=== PATIENT | female | born 1940 | race Two or more races ===

== ENCOUNTER 2017-05-16 11:03 | Outpatient (CLI) | payer OTHER ==
[~2017-05-16 11:03] MED LIST: DOLOGESIC CAPLE1 TAB; NEURONTIN300 MG; NORVASC5 MG PO; NORVASE; PREVACID15 MG PO; TENORMIN50 MG PO; ULTRAM50 MG
== END 2017-05-16 11:05 | disposition home or self-care (01) ==
LOC: RAD 11:03
DX: Z98.1 Arthrodesis status (principal); M96.0 Pseudarthrosis after fusion or arthrodesis

== ENCOUNTER 2017-08-20 08:23 | Emergency (ER) | payer OTHER ==
[~2017-08-20] VITALS: Ht 165.1 cm; Wt 92.1 kg
== END 2017-08-20 18:21 | disposition home or self-care (01) ==
LOC: ER 08:23
DX: K29.60 Other gastritis without bleeding (principal); N39.0 Urinary tract infection, site not specified

== ENCOUNTER 2019-01-08 08:47 | Outpatient (CLI) | payer OTHER | END 2019-01-08 09:02 | disposition home or self-care (01) | LOC: NUCLEAR 08:47 | DX: I83.10 Varicose veins of unspecified lower extremity with inflammation (principal) ==